=== PATIENT | female | born 1960 | race Caucasian/White ===

== ENCOUNTER 2018-05-12 08:15 | Day surgery (SDC) | payer OTHER ==
[~2018-05-12 08:15] MED LIST: EPHEDrine SULFATE 50 MG/5 ML SYG; GLYCOPYRROLATE 0.4 MG INJ; NEOSTIGMINE 3 MG/3 ML SYRINGE
[2018-05-12] MEDS: LACTATED RINGER'S 1,000 ML IV (09:24)
[2018-05-12] MEDS ORDERED: OXYCODONE/ACETAMINOPHEN (5/325) TAB PO (11:30)
[2018-05-12] MEDS ORDERED: FENTAnyl 50 MCG/ML VIAL IV (11:30)
[2018-05-12] MEDS ORDERED: PROCHLORPERAZINE 10 MG INJ IV (11:30)
[2018-05-12] MEDS ORDERED: ONDANSETRON 4 MG INJ IV (11:30)
[2018-05-12] MEDS ORDERED: DIPHENHYDRAMINE 50 MG INJ IV (11:30)
[2018-05-12] MEDS ORDERED: MEPERIDINE 25 MG INJ IV (11:30)
[2018-05-12] MEDS ORDERED: HYDROmorphONE 1 MG/5 ML IV SYRINGE IV (11:30)
[2018-05-12] MEDS ORDERED: MIDAZOLAM 1 MG/ML 2 ML INJ (11:41)
[2018-05-12] MEDS ORDERED: PROPOFOL 20 ML (11:42)
[2018-05-12] MEDS ORDERED: ROCURONIUM 50 MG INJ (11:42)
[2018-05-12] MEDS ORDERED: FENTAnyl 50 MCG/ML VIAL (11:42)
[2018-05-12] MEDS ORDERED: LIDOCAINE 2% (SDV) 5 ML INJ (11:42)
[2018-05-12] MEDS ORDERED: CEFAZOLIN 1 GM INJ (11:58)
[2018-05-12] MEDS: LIDOCAINE 1%/EPI (1:100,000) (MDV) 20 ML (12:00)
[2018-05-12] MEDS: COCAINE 4% 4 ML TOP (12:00)
[2018-05-12] MEDS ORDERED: DEXAMETHASONE 4 MG/ML 5 ML INJ (12:07)
[2018-05-12] MEDS ORDERED: ONDANSETRON 4 MG INJ (12:07)
[2018-05-12] MEDS ORDERED: FAMOTIDINE 20 MG INJ (12:07)
[2018-05-12] MEDS: BACITRACIN/POLYMYXIN 28.35 GM OINT TOP (12:32)
== END 2018-05-12 15:30 | disposition home or self-care (01) ==
LOC: SDS 08:15
DX: J34.2 Deviated nasal septum (principal); J34.3 Hypertrophy of nasal turbinates; J34.89 Other specified disorders of nose and nasal sinuses
CPT/HCPCS: 30140; 88300